=== PATIENT | male | born 1970 | race Caucasian/White ===

== ENCOUNTER 2017-12-11 07:36 | Day surgery (SDC) | payer BC, OTHER ==
[~2017-12-11 07:36] MED LIST: Bupivacaine 25%/EPINEPHrine/PF 30 ML ONE
[2017-12-11] MEDS ORDERED: ceFAZolin 2 GM in Premix Bag 1 BAG IV ONE (08:00)
[2017-12-11] MEDS ORDERED: Lactated Ringers 1,000 ML IV SCH (08:00)
[2017-12-11] MEDS ORDERED: Bupivacaine 0.25%/EPINEPHrine 1:200,000 10 ML SDV INJECT ONE (08:00)
--- NOTE | 2017-12-11 08:26 | PCM.PREANE ---
Preanesthetic Assessment - Anesthesia/Transfusion/Family Hx Anesthesia History: Prior Anesthesia Without Reaction Transfusion History: No Prior Transfusion(s) - Physical Assessment Height: 1.78 m Weight: 97.976 kg - Allergies Allergies/Adverse Reactions: Allergies Allergy/AdvReac Type Severity Reaction Status Date / Time No Known Allergies Allergy Verified 12/06/17 09:33 PreAnesthesia Questionnaire HEENT History: Reports: None Cardiovascular History: Reports: Hypertension Respiratory History: Reports: None Gastrointestinal History: Reports: None Genitourinary History: Reports: None Musculoskeletal History: Reports: Arthritis, Fracture Other Musculoskeletal History: hx fx rt wrist, left tib-fib, arm and ankle Neurological History: Reports: None Psychiatric History: Reports: None Endocrine/Metabolic History: Reports: None Hematologic History: Reports: None Immunologic History: Reports: None Oncologic (Cancer) History: Reports: None Dermatologic History: Reports: None - Past Surgical History Head Surgeries/Procedures: Reports: None HEENT Surgical History: Reports: Adenoidectomy, Tonsillectomy Cardiovascular Surgical History: Reports: None Respiratory Surgical History: Reports: None GI Surgical History: Reports: None Female Surgical History: Male Surgical History: Reports: None Endocrine Surgical History: Reports: None Neurological Surgical History: Reports: Lumbar Spine Other Neurological Surgeries/Procedures: hx back surgery Musculoskeletal Surgical History: Reports: Shoulder Surgery Other Musculoskeletal Surgeries/Procedures:: knee surgery, surgical tx for fx rt wrist and rotator cuff repair Oncologic Surgical History: Reports: None Dermatological Surgical History: Reports: None - SUBSTANCE USE Smoking Status *Q: Never Smoker Recreational Drug Use History: No - HOME MEDS Home Medications: Home Meds Lisinopril 1 tab PO DAILY 12/06/17 [History] valACYclovir HCl [Valtrex] 1 tab PO ASDIRECTED 12/06/17 [History] - CURRENT (IN HOUSE) MEDS Current Meds: Current Medications Cefazolin Sodium/Dextrose 2 gm (/ Premix) 50 mls @ 100 mls/hr IV ONETIME ONE Stop: 12/11/17 08:29 Lactated Ringer's (Ringers, Lactated) 1,000 mls @ 500 mls/hr IV ONARRIVE AROLDO Last Admin: 12/11/17 08:08 Dose: 500 mls/hr Discontinued Medications Bupivacaine HCl/Epinephrine Bitart (Marcaine 0.25%/Epinephrine 1:200,000) 10 ml INJECT ONETIME ONE Stop: 12/11/17 08:01 Bupivacaine HCl/Epinephrine Bitart (Sensor Mpf 0.25%-Epi 1:[id number]) Confirm Administered Dose 30 mls @ as directed .ROUTE .STK-MED ONE Stop: 12/11/17 07:32
[2017-12-11] MEDS ORDERED: Ondansetron 4 MG/2 ML SDV ONE (08:46)
[2017-12-11] MEDS ORDERED: Propofol 200 MG/20 ML SDV ONE (08:46)
[2017-12-11] MEDS ORDERED: fentaNYL 100 MCG/2 ML SDV ONE ×2 (08:46→10:09)
[2017-12-11] MEDS ORDERED: Midazolam 1 MG/ML 2 ML SDV ONE (08:46)
[2017-12-11] MEDS ORDERED: fentaNYL 100 MCG/2 ML SDV IVPUSH PRN (09:31)
[2017-12-11] MEDS ORDERED: Lidocaine 2% 5 ML SDV ONE (10:09)
[2017-12-11] MEDS ORDERED: Ketorolac 30 MG/ML SDV ONE (10:34)
--- NOTE | 2017-12-11 11:19 | PCM.POSTAN ---
POST ANESTHESIA ASSESSMENT - MENTAL STATUS Mental Status: Alert, Oriented - RESPIRATORY Respiratory Status: Respiratory Rate WNL, Airway Patent, O2 Saturation Stable - CARDIOVASCULAR CV Status: Pulse Rate WNL, Blood Pressure Stable - GASTROINTESTINAL GI Status: No Symptoms - PAIN Pain Score: 5 - POST OP HYDRATION Hydration Status: Adequate & Stable - OBSERVATIONS Free Text/Narrative:: no anesthesia problems
--- NOTE | 2017-12-11 11:20 | PCM.OPNOTE ---
- General Post-Op/Procedure Note Date of Surgery/Procedure: 12/11/17 Operative Procedure(s): excision of left middle and ring finger dupuytrens contracture of the palm. Pre Op Diagnosis: dupuytrens of the left palm middle and ring fingers Post-Op Diagnosis: Same Anesthesia Technique: General LMA, Local Primary Surgeon: Moira Damon Child Neurologist: Christy Ferrara Reason Child Neurologist Was Necessary: retraction, prepping draping and closure asssistance. Complications: None Condition: Good Free Text/Narrative:: Intake & Output 12/10/17 12/11/17 12/11/17 23:59 07:59 15:59 Intake Total 1200 Balance 1200
[2017-12-11] MEDS ORDERED: Acetaminophen/HYDROcodone 325-10 MG Tab PO ONE (11:30)
--- NOTE | 2017-12-11 11:51 | PCM48HPAN ---
Post Anesthesia Note - EVALUATION WITHIN 48HRS OF ANESTHETIC Vital Signs in Normal Range: Yes Patient Participated in Evaluation: Yes Respiratory Function Stable: Yes Airway Patent: Yes Cardiovascular Function Stable: Yes Hydration Status Stable: Yes Pain Control Satisfactory: Yes Nausea and Vomiting Control Satisfactory: Yes Mental Status Recovered: Yes Resp Rate: 18 - COMMENTS/OBSERVATIONS Free Text/Narrative:: no anesthesia problems
--- NOTE | 2017-12-13 19:57 | OR ---
SURGEON: CARMEN HARRIS MD DATE OF PROCEDURE: 12/11/2017 PREOPERATIVE DIAGNOSIS: Dupuytren's of left palm, middle and ring finger. POSTOPERATIVE DIAGNOSIS: Dupuytren's of left palm, middle and ring finger. PROCEDURE: Excision of the left middle finger and ring finger Dupuytren's contractures of the palm. ANESTHESIA: General LMA local. CARBON PRINTER: NOELLE Lewis REASON CARBON PRINTER WAS NECESSARY: Retraction, prepping, draping, and closure assistance. INDICATIONS: Mr. Bernal is a 47-year-old gentleman, seen today for left middle and ring finger Dupuytren's contractures of the palm. Risks and benefits of release were discussed with him. He continues to have increased pain and problems and he would like it excised. Risks were including, but not limited to bleeding, infection, damage to underlying or overlying structures, possible need for future interventions, and possible scarring. PROCEDURE IN DETAIL: After informed consent was obtained and placed on the chart, the patient was brought to the operating theater and laid in supine position. After adequate general anesthesia was obtained, the area was prepped and draped, and a time-out was completed to confirm side and site. The arm was exsanguinated and tourniquet was insufflated to 200 mmHg, and Sebastien incisions were designed over the ring finger and middle finger Dupuytren's cord in the palm. Once designed, dissection was carried through the skin and subcutaneous tissues using a 15 blade. Once the Dupuytren's cords and nodules were outlined, meticulous hemostasis was obtained and dissection was carried circumferentially around this protecting the neurovascular bundles. The cords were excised en bloc and sent for pathology. Once adequately excised, the tourniquet was desufflated, and meticulous hemostasis was obtained. Thus, the neurovascular bundles were directly visualized to be intact. The wound was then closed using horizontal mattress 5-0 nylon stitches in an interrupted fashion for both Sebastien incisions. The patient tolerated this well on both the ring finger and the middle finger, and the wounds were dressed with Xeroform fluffs, and a Kerlix gauze dressing, and a bulky hand dressing with a 2-inch Chadd wrap over top. The patient tolerated this well. All counts and needles were correct at the end of the case. FOLLOWUP INSTRUCTIONS: The patient will see us in clinic in 10 to 14 days sooner if any problems, questions, or concerns. He was given a prescription for pain control. GRIS / MOHINDER /[id number]
== END 2017-12-11 12:15 | disposition home or self-care (01) ==
LOC: MW.SDS 07:36
PROVIDERS: ATTEND Plastic Surgery
DX: M72.0 Palmar fascial fibromatosis [Dupuytren] (principal); Z79.899 Other long term (current) drug therapy
CPT/HCPCS: 26040; A9270; J1885; J2250; J2405; J3010; J7120; 01810; J2704